=== PATIENT | female | born 1995 | race Caucasian/White ===

== ENCOUNTER 2024-09-28 04:59 | Inpatient (IN) | payer OTHER, SELFPAY ==
[2024-09-28] VITALS (14 sets, daily range): BP systolic 106–174; BP diastolic 73–106; BMI 43.1
--- NOTE | 2024-09-28 02:56 | ED.GENMED ---
History of Present Illness
General
Chief Complaint: Abdominal Pain
Source: patient
Time Seen by Provider: 09/28/24 02:07
Nursing documentation reviewed up to this point in time: agreed with
History of Present Illness
History of Present Illness:
Pleasant 29-year-old female who presents with right upper quadrant abdominal pain. It began around noon but was exacerbated while at work after eating crackers. She states that the pain is sharp. She did have some vomiting. Denies fever, chills,
chest pain, or shortness of breath. Denies previous abdominal surgeries. Patient does have a history of bipolar disorder with depression and anxiety. She had a spinal fusion in December 2023 but denies any other surgeries. Last menstrual period was
in August but being on control she sometimes misses her menses.
Review of Systems
Review of Systems
Allergies reviewed?: Yes
All Other Systems: ROS reviewed and negative except as documented in HPI and ROS
Constitutional: Reports no symptoms
EENT: Reports no symptoms
Respiratory: Reports no symptoms
Cardiac: Reports no symptoms
ABD/GI: Reports abdominal pain, nausea and vomiting
: Reports no symptoms
Musculoskeletal: Reports no symptoms
Skin: Reports no symptoms
Neurological: Reports no symptoms
Endocrine: Reports no symptoms
Hematologic/Lymphatic: Reports no symptoms
Psychiatric: Reports no symptoms
Phy Exam
General Physical Exam
General Presentation: well appearing and no apparent distress
General Skin: warm and dry
General Habitus: normal
General Mental: alert
General Hydration: appears well hydrated
ENT Exam
ENT Exam: EOMI, pharynx normal, neck supple and normocephalic
Eye Exam
Eye Exam: PERRL, cornea clear and conjunctiva normal
Cardiovascular Exam
Cardiovascular Exam: regular rate/rhythm, no edema, no murmur and normal peripheral pulses
Pulmonary Exam
Pulmonary Exam: lungs clear, no respiratory distress, no rales, no crackles, no rhonchi, no stridor, no wheezing and no cough
Gastrointestinal Exam
Gastrointestinal Exam: normal bowel sounds, non distended, no cva tenderness and guarding
Palpation: right upper quadrant: Moderate tenderness
Neurological Exam
Neurological Exam: alert, oriented x3, no motor deficits and speech normal
Musculoskeletal Exam
Musculoskeletal Exam: full ROM and no edema
Skin Exam
Skin Exam: normal color, warm/dry, no rash and no petechia
Psychiatric Exam
Psychiatric Exam: normal mood/affect
Course
Orders/Labs/Results
Orders:
Orders
09/28/24 01:38
Test Result ONCE
09/28/24 02:40
Complete Blood Count/With Diff Urgent
Comprehensive Metabolic Panel Urgent
HCG, Serum Qualitative Screen Urgent
09/28/24 02:47
US Abdomen Complete/Upper Urgent
Comment:
Reason For Exam: ruq abd pain
09/28/24 02:48
Morphine Sulfate 4 mg IV NOW STA
Ondansetron Injectable [Zofran] 4 mg IV NOW STA
09/28/24 04:40
Admit/Transfer Patient As Directed
Co-Sign Provider:
Level of Care: Inpatient admission
Assign to:: Medical/Surgical
Physician / Group: Zach
Diagnosis: Cholelithiasis +/- Choledocholithiasis
Reason for Hospitalization: Cholelithiasis +/- Choledocholithiasis
Expected length of stay greater than two midnights?: Yes
ELOS- Estimated Length of Stay in days: 2
I certify the patient meets the requirements for IP care: Yes
PRN Pain Medication Management As Directed
May give lesser potent ordered pain med per pt: Yes
preference::
Protocol:: Medication orders for pain may be administered in a
manner that supports deferring to patient preference
when the pt is:
- Requesting an ordered lesser potent pain medication.
Least to most potent pain medications are defined
as: acetaminophen < NSAID < tramadol < opioids
(morphine, oxycodone, hydromorphone).
- Requesting a lesser dose of the same medication IF
ORDERED.
- Requesting a less intrusive route of administration
if both routes are prescribed by the provider (PO <
IV).
09/28/24 04:41
Code Status As Directed
Resuscitation Status: Full Code
09/28/24 05:02
0.9% Sodium Chloride 1000 ml [Nss] 1,000 ml IV 100 mls/hr
Acetaminophen [Tylenol] 650 mg PO Q4HPRN PRN
Albuterol Nebs [Ventolin Nebules] 2.5 mg INH R Q4HPRN PRN
HYDROmorphone [Dilaudid] 0.5 mg IV Q4HPRN PRN
Ondansetron Injectable [Zofran] 4 mg IV Q6HPRN PRN
09/28/24 05:02
Consult Notification Routine
Specialty to Notify: Gastroenterology
Consult Notification Routine
Specialty to Notify: Surgical
GASTROINTESTINAL CONSULT Routine
Consulting Provider: Leona Dunlap
Was physician already notified: No
Reason for consult: Cholelithiasis +/- Choledocholithiasis
SURGICAL CONSULT Routine
Consulting Provider: Magdi Hardy
Was physician already notified: No
Reason for consult: Cholelithiasis +/- Choledocholithiasis
Activity As Directed
Activity Level: Ambulate
I/O [Intake/ Output] As Directed
Frequency: Per unit guidelines
Pneumatic Compression Sleeves As Directed
Type: Knee high
Vital Signs As Directed
Frequency: Per unit guidelines
Oxygen Therapy [O2 Therapy] [RESP] Routine
Titrate/Wean O2 to maintain O2 sat greater than (%): 94
DX Deep Vein Thrombosis Video Routine
09/28/24 Breakfast
NPO
Allow oral meds: Yes
Allow clear liquids: Sips of Clears
Basic Metabolic Panel IN AM
Complete Blood Count/No Diff IN AM
LFT [[id number]] IN AM
MR Abdomen W/o & W Contrast IN AM
Comment: MRCP
Reason For Exam: Cholelithiasis +/- Choledocholithiasis
Recent pill cam endoscopy?: No
09/28/24 08:00
Cetirizine HCl [Zyrtec] 10 mg PO DAILY
Gabapentin [Neurontin] 400 mg PO TID
Montelukast Sodium [Singulair] 10 mg PO DAILY
Pantoprazole [Protonix IV] 40 mg IV DAILY
Abnormal Lab Results
09/28/24
02:40
WBC 12.4 H 10^3/uL
(4.8-10.8)
MCH 31.8 H pg
(27.0-31.0)
Absolute Neuts (auto) 9.8 H 10^3/uL
(1.4-6.5)
Absolute Monos (auto) 0.8 H 10^3/uL
(0.1-0.6)
Neutrophils % 78.9 H %
(42.2-75.2)
Lymphocytes % 13.6 L %
(20.5-51.1)
Glucose 110 H mg/dl
(70-99)
Total Bilirubin 2.2 H mg/dl
(0.2-1.3)
AST 402 H U/L
(14-36)
ALT 174 H U/L
(0-35)
09/28/24 02:40
09/28/24 02:40
Vital Signs
Initial and Last Documented VS:
Initial Vital Signs
Temp Pulse Resp BP Pulse Ox
98 F 86 24 174/106 100
09/28/24 01:35 09/28/24 01:35 09/28/24 01:35 09/28/24 01:35 09/28/24 01:35
Last Documented Vital Signs
Temp Pulse Resp BP Pulse Ox
98.2 F 79 20 138/80 99
09/28/24 05:26 09/28/24 05:26 09/28/24 05:26 09/28/24 05:26 09/28/24 05:26
*Critical Care Note
Total Time (30-74mins, 75-104mins- exclusive of procedures): Not Applicable
Update Note
Update Note:
IMPRESSION:
Cholelithiasis with several gallstones in gallbladder
No secondary findings to suggest cholecystitis
No appreciable gallbladder wall thickening or pericholecystic fluid
Negative sonographic Hancock's sign per report
CBD is dilated, measuring up to 8 mm
No ductal stones visualized. However distal duct/pancreatic head region not well evaluated with this exam
Suggest correlating with biochemical parameters.
If any clinical concern for choledocholithiasis, consider further evaluation with MRCP
ED Attending Note
-
Portions of this chart may have been created with voice recognition software.� Occasional wrong word or��sound alike� substitutions may have occurred due to the inherent limitations of voice recognition software.
Discharge Plan
Departure
Patient Disposition: Admit
Date of Disposition: 09/28/24
Time of Disposition: 04:22
Admit to: Med/Surg
Presentation/result/management discussed w/ accepting MD/DO: Hospitalist
Condition: Good
Discharge Problem:
Biliary colic, Elevated transaminase level, Right upper quadrant abdominal pain
Interventions
Interventions:
*Risk Screen - Suicide Last Done: 09/28/24 01:35
*General Assessment Last Done: 09/28/24 05:25
*Neglect/Abuse Screening Last Done: 09/28/24 01:35
ED- Fall Risk Assessment Last Done: 09/28/24 02:49
EN-Ztebbi-Ybboxdugco Assessment Last Done: 09/28/24 02:49
[2024-09-28 03:07] LABS: % Basophils 0.6 % (0-2); % Eosinophils 0.3 % (0-6); % Immature Granulocytes 0.3 % (0-0.5); % Lymphocytes 13.6 % (20.5-51.1); % Monocytes 6.3 % (1.7-9.3); % Neutrophils 78.9 % (42.2-75.2); Absolute Basophils 0.1 10^3/uL (0-0.2); Absolute Lymphocytes 1.7 10^3/uL (1.2-3.4); Absolute Monocytes 0.8 10^3/uL (0.1-0.6); Absolute Neutrophils 9.8 10^3/uL (1.4-6.5); Hematocrit 42.4 % (37.0-47.0); Hemoglobin 14.7 g/dL (12.0-16.0); Mean Corp Hgb Conc. 34.7 g/dL (33.0-37.0); Mean Corpuscular Hgb 31.8 pg (27.0-31.0); Mean Corpuscular Volume 91.8 fL (81.0-99.0); Mean Platelet Volume 10.4 fL (7.4-10.4); Nucleated Red Blood Cells % 0 %; Platelet Count 347 10^3/uL (130-400); Red Blood Cell Count 4.62 10^6/uL (4.20-5.40); Red Cell Dist. Width 12.4 % (11.5-14.5); White Blood Cell Count 12.4 10^3/uL (4.8-10.8)
[2024-09-28] MEDS: ZOFRAN 4 MG IV (03:33)
[2024-09-28] MEDS: MORPHINE SULFATE 4 MG IV (03:34)
[2024-09-28 03:49] LABS: ALT (SGPT) 174 U/L (0-35); AST (SGOT) 402 U/L (14-36); Albumin 4.7 g/dl (3.5-5.0); Alkaline Phosphatase 109 U/L (38-126); Blood Urea Nitrogen 9 mg/dl (7-17); Calcium 10.2 mg/dl (8.4-10.2); Carbon Dioxide 23 mmol/L (22-30); Chloride 103 mmol/L (98-107); Estimated Creatinine Clearance > 125 ml/min; Glucose 110 mg/dl (70-99); Potassium 4.3 mmol/L (3.5-5.1); Sodium 139 mmol/L (135-145); Total Bilirubin 2.2 mg/dl (0.2-1.3); Total Protein 8.1 g/dl (6.3-8.2); eGFR > 60.00
[2024-09-28 03:57] LABS: HCG, Serum Qualitative Screen Negative
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
[2024-09-28] MEDS: NSS 1000 IV ×2 (05:23→15:46)
[2024-09-28 05:53] LABS: Hematocrit 38.6 % (37.0-47.0); Hemoglobin 13.4 g/dL (12.0-16.0); Mean Corp Hgb Conc. 34.7 g/dL (33.0-37.0); Mean Corpuscular Hgb 31.9 pg (27.0-31.0); Mean Corpuscular Volume 91.9 fL (81.0-99.0); Mean Platelet Volume 10.4 fL (7.4-10.4); Platelet Count 339 10^3/uL (130-400); Red Cell Dist. Width 12.4 % (11.5-14.5); White Blood Cell Count 11.7 10^3/uL (4.8-10.8)
[2024-09-28 06:19] LABS: ALT (SGPT) 204 U/L (0-35); AST (SGOT) 434 U/L (14-36); Albumin 4.6 g/dl (3.5-5.0); Alkaline Phosphatase 109 U/L (38-126); Blood Urea Nitrogen 8 mg/dl (7-17); Calcium 9.8 mg/dl (8.4-10.2); Carbon Dioxide 22 mmol/L (22-30); Chloride 101 mmol/L (98-107); Direct Bilirubin 1.7 mg/dl (0.0-0.4); Estimated Creatinine Clearance > 125 ml/min; Glucose 110 mg/dl (70-99); Potassium 4.3 mmol/L (3.5-5.1); Sodium 136 mmol/L (135-145); Total Bilirubin 2.4 mg/dl (0.2-1.3); Total Protein 7.2 g/dl (6.3-8.2); eGFR > 60.00
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
--- NOTE | 2024-09-28 08:20 | VATNOTE ---
Called to place new PIV. Patient and family state patient is a 'hard stick' and upset that further attempts were to be made for additional IV access. Family adamantly requests u/s guided IV; will place midline.
[2024-09-28 09:20] LABS: PT 13.7 Sec (11.4-14.6)
[2024-09-28] MEDS: SINGULAIR 10 MG PO (09:23)
[2024-09-28] MEDS: ZYRTEC 10 MG PO (09:23)
[2024-09-28] MEDS: TYLENOL 650 MG PO (09:23)
[2024-09-28] MEDS: PROTONIX IV 40 MG IV (09:25)
[2024-09-28] MEDS: NSS (PRESERVATIVE FREE) 10 ML IV (09:25)
[2024-09-28] MEDS: NEURONTIN 400 MG PO ×3 (09:43→21:17)
[2024-09-28 09:53] LABS: Lipase 79 U/L (23-300)
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
--- NOTE | 2024-09-28 13:20 | PTCARENOTE ---
Patient arrived to room from ER. Patient here with gallstones, awaiting ERCP.
--- NOTE | 2024-09-28 14:18 | W.PN.HOSP.TC ---
Today's Communication/Plan
-
Assessment / Plan
Assessment / Plan
Gen-AAOx3, NAD
HEENT-NC, AT, anicteric, clear oral mm
Neck-supple
CV-reg, no M, +S1/S2
Lungs-clear B/L
Abd-soft, mild epigastric TTP
Musculoskeletal-no edema, no deformity
Skin-warm and dry
Neuro-grossly non-focal
Psych-calm, cooperative
Ms. Victoria is a 29-year-old female with medical history of asthma and obesity who presented with epigastric pain. She was found to have multiple gallstones within the gallbladder and mildly dilated CBD. She has been admitted for further evaluation
and management of choledocholithiasis.
Suspected choledocholithiasis:
-N.p.o. for planned EUS and possible ERCP
-Pain control as needed
-Further recommendations from GI
-General Surgery following, will discuss possibility of cholecystectomy this admission versus outpatient
Abnormal LFTs:
-Mixed cholestatic and hepatocellular pattern
-Suspect secondary to choledocholithiasis
-Will monitor for resolution with possible ERCP
CODE STATUS: Full code
Anticipated Discharge: 24 - 48 hours
Subjective/Interval History
-
Date of Service: September 28, 2024
Patient was seen and examined at bedside this morning. She has mild epigastric pain at this point. Abdominal ultrasound showed multiple gallstones in the gallbladder with no evidence of acute cholecystitis, but did show mild CBD dilatation. She
is awaiting EUS with possible ERCP.
Objective Data
-
Labs:
Laboratory Results
09/28/24 09/28/24 09/28/24
02:40 05:24 09:02
WBC 12.4 H 11.7 H
Hgb 14.7 13.4
Hct 42.4 38.6
Plt Count 347 339
PT 13.7
INR 1.00
Sodium 139 136
Potassium 4.3 4.3
Chloride 103 101
Carbon Dioxide 23 22
BUN 9 8
Creatinine 0.6 0.5 L
Glucose 110 H 110 H
Calcium 10.2 9.8
Total Bilirubin 2.2 H 2.4 H
AST 402 H 434 H
ALT 174 H 204 H
Alkaline Phosphatase 109 109
Vital Signs:
Vital Signs
Temp Pulse Resp BP Pulse Ox
98.2 F 79 17 139/79 98
09/28/24 13:39 09/28/24 13:39 09/28/24 13:39 09/28/24 13:39 09/28/24 13:39
Review of Systems
-
History Source: Patient
All other systems: Reviewed and negative
Abdomen/GI: Reports Abdominal Pain (Epigastric)
Physical Exam
-
General: No Apparent Distress
[2024-09-28] MEDS: DILAUDID 0.5 MG IV ×2 (16:53→21:17)
[2024-09-29] VITALS (8 sets, daily range): BP systolic 108–148; BP diastolic 62–88
[2024-09-29] MEDS: NSS 1000 IV ×2 (01:23→11:22)
[2024-09-29] MEDS: DILAUDID 0.5 MG IV ×4 (07:19→21:32)
[2024-09-29] MEDS: SINGULAIR 10 MG PO (07:55)
[2024-09-29] MEDS: NSS (PRESERVATIVE FREE) 10 ML IV (07:55)
[2024-09-29] MEDS: PROTONIX IV 40 MG IV (07:55)
[2024-09-29] MEDS: ZYRTEC 10 MG PO (07:55)
[2024-09-29] MEDS: NEURONTIN 400 MG PO ×3 (07:55→21:33)
[2024-09-29 08:04] LABS: Hematocrit 37.3 % (37.0-47.0); Hemoglobin 12.8 g/dL (12.0-16.0); Mean Corp Hgb Conc. 34.3 g/dL (33.0-37.0); Mean Corpuscular Hgb 31.5 pg (27.0-31.0); Mean Corpuscular Volume 91.9 fL (81.0-99.0); Mean Platelet Volume 10.2 fL (7.4-10.4); Platelet Count 315 10^3/uL (130-400); Red Blood Cell Count 4.06 10^6/uL (4.20-5.40); Red Cell Dist. Width 12.4 % (11.5-14.5); White Blood Cell Count 10.1 10^3/uL (4.8-10.8)
[2024-09-29 09:00] LABS: Total Bilirubin 0.7 mg/dl (0.2-1.3)
[2024-09-29 09:01] LABS: ALT (SGPT) 140 U/L (0-35); AST (SGOT) 85 U/L (14-36); Albumin 3.9 g/dl (3.5-5.0); Alkaline Phosphatase 106 U/L (38-126); Blood Urea Nitrogen 8 mg/dl (7-17); Calcium 9.2 mg/dl (8.4-10.2); Carbon Dioxide 21 mmol/L (22-30); Chloride 105 mmol/L (98-107); Estimated Creatinine Clearance > 125 ml/min; Glucose 100 mg/dl (70-99); Potassium 4.2 mmol/L (3.5-5.1); Sodium 136 mmol/L (135-145); Total Protein 6.8 g/dl (6.3-8.2); eGFR > 60.00
[2024-09-29] MEDS: TYLENOL 650 MG PO (09:25)
--- NOTE | 2024-09-29 09:30 | W.PN.GS2 ---
Addendum entered and electronically signed by Kevin Quezada MD 09/29/24 10:33:
Patient seen and examined earlier this a.m. with surgical MINER[employer] RESOURCES INSPECTOR. Agree with documented progress note.
Overall patient feeling well post ERCP. Little epigastric discomfort with radiation to the right side but no significant pain. Mild nausea.
AFVSS
ABD: Soft, nondistended, minimal tenderness. No rebound rigidity or guarding.
A/P: 29-year-old female with choledocholithiasis and cholelithiasis now status post ERCP with successful stone removal.
Discussed with patient indications for cholecystectomy. Patient preference is to proceed with surgery at index hospitalization.
Added onto the OR schedule for today.
Laparoscopic cholecystectomy possible cholangiograms reviewed in detail the patient including the operative technique, potential operative findings and the management, alternative treatment options, benefits and risk such as but not limited to
bleeding, infectious and related complications, iatrogenic injury to surrounding viscera, bile duct injury, bile leak, postcholecystectomy fatty food intolerances. We discussed the typical postoperative recovery and care. Any of the patient's
concerns or questions were fully addressed and informed consent was obtained.
Original Note:
Today's Communication / Plan
-
OR today
Assessment / Plan
-
29 yo female presenting with choledocholithiasis now PPD #1 ERCP for removal of stone
AFVSS
No leukocytosis
Bilirubin normalized s/p ERCP, transaminases trending down. Pain improved.
--NPO for OR today for laparoscopic cholecystectomy
--Analgesics/antiemetics prn
Subjective Data
-
Date of Service: September 29, 2024
Patient seen and examined at bedside with Dr. Quezada. Denies n/v, had a little post procedure yesterday. Pain much better but still a little discomfort under the right breast.
Objective Data
-
Intake and Output
09/28/24 09/29/24 09/30/24
06:59 06:59 06:59
Intake Total 1779
Balance 1779
Intake:
Oral fluids 480 / 480
IV fluids (Total) 1300 / 1300
normosol 100 / 100
Other:
Number of approximated MODERATE 2 1
amounts of urine
Vital Signs
Temp Pulse Resp BP Pulse Ox
98.6 F 76 16 108/62 96
09/29/24 07:38 09/29/24 07:38 09/29/24 07:38 09/29/24 07:38 09/29/24 07:38
Lab Results
09/29/24 07:48
09/29/24 07:49
Calcium 9.2 mg/dl (8.4-10.2) 09/29/24 07:49
Total Bilirubin 0.7 mg/dl (0.2-1.3) D 09/29/24 07:49
Direct Bilirubin 1.7 mg/dl (0.0-0.4) H 09/28/24 05:24
AST 85 U/L (14-36) H 09/29/24 07:49
ALT 140 U/L (0-35) H 09/29/24 07:49
Alkaline Phosphatase 106 U/L (38-126) 09/29/24 07:49
Total Protein 6.8 g/dl (6.3-8.2) 09/29/24 07:49
Albumin 3.9 g/dl (3.5-5.0) 09/29/24 07:49
Physical Exam
-
NAD
ABD soft, nt, nd
[2024-09-29] MEDS: ZOFRAN 4 MG IV (10:11)
--- NOTE | 2024-09-29 11:40 | CM ---
b2b sales manager reviewed patient's chart and met with patient and mother at bedside, patient lives with boyfriend mother and brother in a 2 story home, patient is independent with adl's and ambulation, no dme, patient drives, home when stable no needs.
PCP: Dr. Espinoza
Pharmacy: [facility], [place], [place].
Plan; Home with family when stable, no needs.
--- NOTE | 2024-09-29 13:27 | W.PN.UPDATE ---
Update Note
Progress Note Update
LFTs have markedly improved post ERCP with sphincterotomy and stone extraction. Noted input from surgery for cholecystectomy today. GI will sign off and will be available as needed
--- NOTE | 2024-09-29 13:33 | W.SUR.PREOP ---
Pre-Operative Surgical Note
-
I have examined this patient prior to the performance of the scheduled procedure.
The patient's condition is unchanged from the time of the current History and
Physical and the patient is able to undergo the scheduled procedure.
--- NOTE | 2024-09-29 15:00 | W.PN.HOSP.TC ---
Today's Communication/Plan
-
Assessment / Plan
Assessment / Plan
Gen-AAOx3, NAD
HEENT-NC, AT, anicteric, clear oral mm
Neck-supple
CV-reg, no M, +S1/S2
Lungs-clear B/L
Abd-soft, mild epigastric TTP
Musculoskeletal-no edema, no deformity
Skin-warm and dry
Neuro-grossly non-focal
Psych-calm, cooperative
Ms. Victoria is a 29-year-old female with medical history of asthma and obesity who presented with epigastric pain. She was found to have multiple gallstones within the gallbladder and mildly dilated CBD. She has been admitted for further evaluation
and management of choledocholithiasis.
Suspected choledocholithiasis:
-Status post ERCP yesterday 09/28 with sphincterotomy, stone extraction, and stent
-N.p.o. pending laparoscopic cholecystectomy today
-Pain control as needed
Abnormal LFTs:
-Dramatically improved following ERCP and stone removal
-Monitor
CODE STATUS: Full code
Anticipated Discharge: 24 - 48 hours
Subjective/Interval History
-
Date of Service: September 29, 2024
Patient was seen and examined at bedside this morning. She underwent successful ERCP yesterday with removal of common bile duct gallstones and stent placement. She remains n.p.o. pending lap steven today.
Objective Data
-
Labs:
Laboratory Results
09/29/24 09/29/24
07:48 07:49
WBC 10.1
Hgb 12.8
Hct 37.3
Plt Count 315
Sodium 136
Potassium 4.2
Chloride 105
Carbon Dioxide 21 L
BUN 8
Creatinine 0.6
Glucose 100 H
Calcium 9.2
Total Bilirubin 0.7 D
AST 85 H
ALT 140 H
Alkaline Phosphatase 106
Vital Signs:
Vital Signs
Temp Pulse Resp BP Pulse Ox
98.6 F 76 16 108/62 96
09/29/24 07:38 09/29/24 07:38 09/29/24 07:38 09/29/24 07:38 09/29/24 07:38
I&O
09/28/24 09/29/24 09/30/24
06:59 06:59 06:59
Intake Total 1779
Balance 1779
Review of Systems
-
History Source: Patient
All other systems: Reviewed and negative
Abdomen/GI: Reports Abdominal Pain
Physical Exam
-
General: No Apparent Distress
--- NOTE | 2024-09-29 15:10 | W.IMMPOSTOP ---
Addendum entered and electronically signed by Kevin Quezada MD 09/29/24 15:19:
#[id number]
Original Note:
Surgical Immed Post Op Note
-
Primary Surgeon: Kevin Quezada MD
Assisting Surgeon: Kaley TALLEY
EUGENE Ovalles
Pre-op Diagnosis: Choledocholithiasis, cholelithiasis
Post-op Diagnosis: Choledocholithiasis, cholelithiasis
Procedure Performed: Laparoscopic cholecystectomy
Anesthesia Type: GETA +0.25% Marcaine
Specimen / Cultures: Gallbladder/none
Estimated Blood Loss: 6 mL
Complications: None immediate
Operative Findings: Physiologically distended gallbladder without adhesions. Cystic duct mildly dilated as anticipated given recent history of choledocholithiasis managed with ERCP sphincterotomy stone extraction. Cystic duct and artery individual
identified and controlled with hemoclips. Posterior cystic artery branch also identified during dissection and controlled with clips. Gallbladder removed at epigastric 12 mm trocar site.
Plan: Advance diet as tolerated postoperatively to low-fat.
Routine postoperative care
Okay for DC home from a surgical standpoint when tolerating p.o., ambulating and pain control.
Patient's mother updated postoperatively via phone call
[2024-09-29] MEDS: DILAUDID 0.25 MG IV (15:48)
[2024-09-29] MEDS: MYLICON 80 MG PO (17:50)
--- NOTE | 2024-09-29 18:31 | PTCARENOTE ---
Pt received from PACU s/p lap steven. AAOx3. Lap sites approximated, surgical adhesive present. Clear liquids ordered. Pt resting in bed, call vargas in reach. Family at bedside.
[2024-09-30 03:00] VITALS: BP 128/75
[2024-09-30] MEDS: DILAUDID 0.5 MG IV (03:09)
[2024-09-30] MEDS: MYLICON 80 MG PO ×2 (03:09→11:58)
[2024-09-30 07:09] VITALS: BP 141/83
[2024-09-30] MEDS: ZYRTEC 10 MG PO (07:41)
[2024-09-30] MEDS: ROXICODONE 5 MG PO ×2 (07:41→14:29)
[2024-09-30] MEDS: NEURONTIN 400 MG PO (07:41)
[2024-09-30] MEDS: SINGULAIR 10 MG PO (07:41)
[2024-09-30] MEDS: TYLENOL 650 MG PO (07:41)
[2024-09-30] MEDS: ZOFRAN 4 MG IV (07:42)
[2024-09-30] MEDS: NSS (PRESERVATIVE FREE) 10 ML IV (07:43)
[2024-09-30] MEDS: PROTONIX IV 40 MG IV (07:43)
--- NOTE | 2024-09-30 07:54 | W.PN.GS2 ---
Today's Communication / Plan
-
Pain management
Assessment / Plan
-
29 yo female presenting with choledocholithiasis now PPD #2 ERCP for removal of stone and POD #1 lap steven
AFVSS
Pain overnight, more epigastric than incisional. ?pancreatitis after recent instrumentation
--Check CMP/lipase
--On low fat diet
--Analgesics/antiemetics prn.
Subjective Data
-
Date of Service: September 30, 2024
Patient seen and examined at bedside. Denies nausea at this time. Pain overnight in the epigastric area into her back. Some shoulder discomfort as well.
Objective Data
-
Intake and Output
09/29/24 09/30/24 10/01/24
06:59 06:59 06:59
Intake Total 1780 / 1780 480 / 480
Balance 1780 / 1780 480 / 480
Intake:
Oral fluids 480 / 480 480 / 480
IV fluids (Total) 1300 / 1300
normosol 100 / 100
Other:
Number of approximated MODERATE 2 1
amounts of urine
Vital Signs
Temp Pulse Resp BP Pulse Ox
98 F 70 17 141/83 97
09/30/24 07:09 09/30/24 07:09 09/30/24 07:09 09/30/24 07:09 09/30/24 07:09
Calcium 9.2 mg/dl (8.4-10.2) 09/29/24 07:49
Total Bilirubin 0.7 mg/dl (0.2-1.3) D 09/29/24 07:49
Direct Bilirubin 1.7 mg/dl (0.0-0.4) H 09/28/24 05:24
AST 85 U/L (14-36) H 09/29/24 07:49
ALT 140 U/L (0-35) H 09/29/24 07:49
Alkaline Phosphatase 106 U/L (38-126) 09/29/24 07:49
Total Protein 6.8 g/dl (6.3-8.2) 09/29/24 07:49
Albumin 3.9 g/dl (3.5-5.0) 09/29/24 07:49
Physical Exam
-
NAD
ABD soft, epigastric tenderness, nd
Incisions well approximated, intact glue
[2024-09-30 10:07] LABS: Hematocrit 37.7 % (37.0-47.0); Hemoglobin 13.1 g/dL (12.0-16.0); Mean Corp Hgb Conc. 34.7 g/dL (33.0-37.0); Mean Corpuscular Volume 92.2 fL (81.0-99.0); Mean Platelet Volume 10.2 fL (7.4-10.4); Platelet Count 327 10^3/uL (130-400); Red Blood Cell Count 4.09 10^6/uL (4.20-5.40); Red Cell Dist. Width 12.1 % (11.5-14.5); White Blood Cell Count 13.3 10^3/uL (4.8-10.8)
[2024-09-30 10:24] LABS: Albumin 4.1 g/dl (3.5-5.0); Alkaline Phosphatase 84 U/L (38-126); Blood Urea Nitrogen 7 mg/dl (7-17); Calcium 9.5 mg/dl (8.4-10.2); Carbon Dioxide 24 mmol/L (22-30); Chloride 101 mmol/L (98-107); Estimated Creatinine Clearance > 125 ml/min; Glucose 147 mg/dl (70-99); Lipase 144 U/L (23-300); Potassium 3.4 mmol/L (3.5-5.1); Sodium 138 mmol/L (135-145); Total Bilirubin 0.6 mg/dl (0.2-1.3); Total Protein 6.8 g/dl (6.3-8.2); eGFR > 60.00
[2024-09-30 10:43] LABS: ALT (SGPT) 87 U/L (0-35); AST (SGOT) 41 U/L (14-36)
[2024-09-30 10:57] VITALS: BP 132/68
--- NOTE | 2024-09-30 11:47 | CM ---
Chart reviewed and plan is to home with family when stable.
Plan; Home with family, no needs.
[2024-09-30] MEDS: ULTRAM 50 MG PO (11:58)
--- NOTE | 2024-09-30 13:49 | W.DCSUMMARY ---
Discharge Summary
Discharge Data
Date of Admission: 09/28/24
Date of Discharge: 09/30/24
-
Pending Results: No
Hospital Course
Ms. Victoria is a 29-year-old female with medical history of asthma and obesity who presented with epigastric pain. She was found to have multiple gallstones within the gallbladder and mildly dilated CBD. She was admitted for further evaluation and
management of choledocholithiasis. She underwent successful ERCP on 09/28 with sphincterotomy, stone extraction, and stent placement. She underwent laparoscopic cholecystectomy the following day on 09/29/2024. She had some postoperative abdominal
pain that resolved with pain medications. She was able to tolerate a p.o. diet. Her lipase levels remained within normal limits. Her LFTs were significantly elevated at time of admission and dramatically improved after ERCP. She will need repeat
blood work as an outpatient to monitor for resolution of her abnormal LFTs. She was mildly hypokalemic during this hospitalization and her potassium was repleted orally. She was hemodynamically stable at the time of hospital discharge. She was
discharged to home with prescriptions for pain medications and instructions to follow-up in the outpatient surgery office. She will also need to follow-up closely with her primary care physician after hospital discharge.
Gen-AAOx3, NAD
HEENT-NC, AT, anicteric, clear oral mm
Neck-supple
CV-reg, no M, +S1/S2
Lungs-clear B/L
Abd-soft, well-healing abdominal port scars, mild TTP worst in right upper quadrant
Musculoskeletal-no edema, no deformity
Skin-warm and dry
Neuro-grossly non-focal
Psych-calm, cooperative
Discharge Plan
-
Patient Disposition: Home (Routine Discharge)
Discharge Diagnosis/Procedures: Choledocholithiasis, cholelithiasis. ERCP sphincterotomy stone extraction. Laparoscopic cholecystectomy.
Condition: Good
Diet: Low Fat
Additional Diets: Smaller meals initially after surgery is abdominal bloating and distention are common for the first few days
Activity: No strenuous activity
Driving Restrictions: No driving for 24 hours
Bathing Restrictions: OK to Shower
Others Tests: Abd XR ( slip given) to be done 2 weeks after DC.
Activity Restrictions/Additional Instructions:
�Kevin Quezada MD [facility] General Surgery
[facility]
[address], [address]
[place] [address]
[phone]
Post-Operative Instructions for Gallbladder Surgery
The incision sites are sealed with a surgical glue dressing.� It is safe to shower at any time after surgery when the glue is dry.� Let shower water run over the incisions and then pat dry.
Glue dressing typically peels off in 2-3 weeks.
Abdominal/incisional pain and discomfort, shoulder/scapular pain, bloating, and mild nausea, as well as bruising/stiffness and swelling at the incision sites are common after surgery.� If felt to be excessive, notify us.
Please start postoperative pain management using over the counter medications such as Tylenol and Ibuprofen, per instructions on the bottle, as long as there are no medical reasons why you cannot take these medications.
Ice the incisions sites for 20 minutes every hour or so to help with postoperative incisional pain and reduce postoperative surgical site swelling.� Take care NOT to get an ice burn on the skin surface.
A warm heating pad is often helpful to alleviate shoulder/scapular back pains after laparoscopic procedures.� This pain typically dissipates 24-72hrs post op.
Transition to a low fat diet as tolerated after surgery if not experiencing postoperative nausea or significant bloating/distention.� Some fatty food intolerance may occur shortly after surgery (cramps,bloating, nausea,diarrhea with fat intake).
Constipation is common following surgery and postoperative narcotic use.� May use a stool softener such as Colace (100 mg 2x day) to prevent constipation
If no BM 24hrs after surgery, recommend starting daily Miralax
If no BM in 24-48hrs after starting Miralax --> recommend then using a dose of magnesium citrate or milk of magnesia with a Senokot tablet to help alleviate post operative constipation as long as there is no nausea/vomiting and passing gas.
Resume all preoperative medications as prescribed, unless directed otherwise.
Do not drive or drink alcohol for 24 hrs after having anesthesia or while taking narcotic pain medications.
Resume regular daily light activities, such as walking, standing and going up/down stairs as tolerated within 24hrs of surgery.� Please refrain from lifting over 20 lbs or strenuous exercise until postoperative follow up visit &/or approximately
3-4 weeks.�
Call the office with a fever above 101� F, nausea with vomiting, severe abdominal pain, yellowing of skin or eyes, spreading redness and drainage from incision sites or with any concerns/questions.
If not arranged prior to surgery, please call the office to schedule or confirm your 2 week� postoperative surgical follow-up office visit with Dr. Quezada.
Ms. Victoria is a 29-year-old female with medical history of asthma and obesity who presented with epigastric pain. She was found to have multiple gallstones within the gallbladder and mildly dilated CBD. She was admitted for further evaluation and
management of choledocholithiasis. She underwent successful ERCP on 09/28 with sphincterotomy, stone extraction, and stent placement. She underwent laparoscopic cholecystectomy the following day on 09/29/2024. She had some postoperative abdominal
pain that resolved with pain medications. She was able to tolerate a p.o. diet. Her lipase levels remained within normal limits. Her LFTs were significantly elevated at time of admission and dramatically improved after ERCP. She will need repeat
blood work as an outpatient to monitor for resolution of her abnormal LFTs. She was mildly hypokalemic during this hospitalization and her potassium was repleted orally. She was hemodynamically stable at the time of hospital discharge. She was
discharged to home with prescriptions for pain medications and instructions to follow-up in the outpatient surgery office. She will also need to follow-up closely with her primary care physician after hospital discharge.
Referrals:
Keegan Shaw MD [Active] - 10/31/24 10:45 am
(telehealth appt.
Please make sure that Abd Xray is performed 2 weeks after discharge.)
Kevin Quezada MD [Active] - in two to four weeks
Prescriptions:
New
tramadol 50 mg tablet
25 - 50 mg PO Q6HPRN PRN (Reason: severe pain/breakthrough pain) Qty: 8 0RF
ondansetron 4 mg tablet,disintegrating
4 mg PO Q8H PRN (Reason: nausea and vomiting) Qty: 10 0RF
Continued
cetirizine 10 mg Tablet
10 mg PO HS
montelukast 10 mg Tablet
10 mg PO HS
gabapentin 400 mg Tablet
400 mg PO BID
Blisovi 24 Fe 1 mg-20 mcg (24)/75 mg (4) Tablet
1 tab PO HS
biotin 5 mg Tablet
5 mg PO HS
magnesium oxide 200 mg magnesium Tablet
200 mg PO HS
Discharge Orders:
Discharge Patient (As Directed); Ordered 09/30/24
Ordered By: Meng Dailey
Discharge Date and Time
Print Language: CENTRAL AFRICAN
--- NOTE | 2024-09-30 14:23 | PN.CDI ---
CDI
- -
CDI:
Physician Documentation Request
Admit Date: 09/28/24 04:59
Dear Doctor Asim,
Please review the following and provide your response in the progress notes.
Clinical Indicators:
Laboratory Tests
09/28/24 09/28/24 09/29/24
02:40 05:24 07:49
Total Bilirubin 2.2 H 2.4 H 0.7 D
09/30/24
09:55
Total Bilirubin 0.6
Based on the above, please clarify in the progress notes, the appropriate diagnosis, if significant, that supports the above abnormalities and additional evaluation, monitoring and/or treatment rendered:
Elevated total bilirubin
Abnormal lab value, clinically insignificant
Other(please specify)
Use of terms such as suspected, likely, concern for, or probable (associated with a specific diagnosis that is being evaluated, monitored, or treated as if it exists) are acceptable and can be coded in the inpatient setting, when documented at the
time of discharge.
Thank you,
Cordelia Toussaint RN BSN CCDS
CDI Specialist
please contact via tiger text
Please use your independent medical judgment in providing your response.
--- NOTE | 2024-09-30 14:30 | PTCARENOTE ---
reaching out to attending pt requesting different pain medication
[2024-09-30 14:54] VITALS: BP 138/92
--- NOTE | 2024-09-30 14:58 | PTCARENOTE ---
reaching out to attending pt and mother requesting different pharmacy. contacting IV team to remove midline
--- NOTE | 2024-09-30 15:52 | PTCARENOTE ---
Iv at bedside to d/c midline
== END 2024-09-30 16:12 | disposition home or self-care (01) | DRG 418 ==
LOC: 1 ACUTE 04:59
PROVIDERS: Internal Medicine Gastroenterology; Nurse Practitioner Adult Health; Registered Nurse; Surgery; ADMITTING PHYSICIAN Hospitalist; ATTENDING PHYSICIAN Internal Medicine; CONSULT PHYSICIAN Surgery; EMERGENCY PHYSICIAN Student in an Organized Health Care Education/Training Program; OTHER PHYSICIAN Internal Medicine Gastroenterology
PROC: 0F798DZ Dilation of Common Bile Duct with Intraluminal Device, Via Natural or Artificial Opening Endoscopic (ICD-10-PCS; 2024-09-28)
PROC: 0F7D8DZ Dilation of Pancreatic Duct with Intraluminal Device, Via Natural or Artificial Opening Endoscopic (ICD-10-PCS; 2024-09-28)
PROC: 0FCD8ZZ Extirpation of Matter from Pancreatic Duct, Via Natural or Artificial Opening Endoscopic (ICD-10-PCS; 2024-09-28)
PROC: 0FT44ZZ Resection of Gallbladder, Percutaneous Endoscopic Approach (ICD-10-PCS; 2024-09-29)
DX: K80.60 Calculus of gallbladder and bile duct with cholecystitis, unspecified, without obstruction (principal); Z68.41 Body mass index [BMI] 40.0-44.9, adult; J45.998 Other asthma; Z98.1 Arthrodesis status; G89.29 Other chronic pain; E66.01 Morbid (severe) obesity due to excess calories; F31.9 Bipolar disorder, unspecified; F41.9 Anxiety disorder, unspecified; E87.6 Hypokalemia; K82.8 Other specified diseases of gallbladder; K86.9 Disease of pancreas, unspecified; Z79.899 Other long term (current) drug therapy
CPT/HCPCS: 88304; 74330; 76000; 76700; 80053; 82248; 83690; 84703; 85025; 85027; 85610; 96374; 96375; 99284; C1769; C2617